=== PATIENT | female | born 1955 | race Caucasian/White ===

== ENCOUNTER → 2017-09-02 | Outpatient (CLI) | payer OTHER ==
--- NOTE | 2017-09-02 15:26 | REPMRS ---
Patient History The patient states she had a clinical breast exam in 09/17 Patient is postmenopausal. No known family history of cancer. Digital Woman Screen Mammo: September 02, 2017 - Exam #: [id number] Bilateral CC and MLO view(s) were taken. Technologist: Eleonora Alvarado, Technologist Prior study comparison: July 25, 2016, digital woman screen mammo performed at [facility]. July 28, 2015, digital woman screen mammo performed at [facility]. July 26, 2014, digital woman screen mammo performed at [facility]. FINDINGS: There are scattered fibroglandular densities. There has been no change in the appearance of the mammogram from the prior studies. There is a mild amount of scattered fibroglandular density which is fairly symmetric. There is no interval development of dominant mass, architectural distortion, or clustered microcalcification suggestive of malignancy. ASSESSMENT: BI-RADS/ACR category 1 mammogram. Negative. Recommendation Routine screening mammogram in 1 year (for women over age 40). This mammogram was interpreted with the aid of an FDA-approved computer-aided dectection system. Electronically Signed By: Jamal Ho MD 09/02/17 [id number]
== END ==
LOC: M WHC 13:51
PROVIDERS: ATTEND Nurse Practitioner Family
DX: Z12.31 Encounter for screening mammogram for malignant neoplasm of breast (principal)

== ENCOUNTER → 2018-10-30 | Outpatient (CLI) | payer OTHER | LOC: M WHC 13:49 | DX: Z12.31 Encounter for screening mammogram for malignant neoplasm of breast (principal); R92.1 Mammographic calcification found on diagnostic imaging of breast | CPT/HCPCS: 77067 ==

== ENCOUNTER → 2018-10-30 | Outpatient (REF) | payer OTHER ==
[2018-11-04 14:13] LABS: HPV LOW VOL RFLX Negative (Negative)
== END ==
LOC: M SFHCWAGY 14:17
DX: Z12.4 Encounter for screening for malignant neoplasm of cervix (principal)
CPT/HCPCS: G0123

== ENCOUNTER 2019-04-24 07:37 | Day surgery (SDC) | payer OTHER ==
[~2019-04-24] VITALS: Ht 157.5 cm; Wt 79.8 kg
[~2019-04-24 07:37] MED LIST: PRIL20TA2 PO; VITA500C19 PO; vitamin d PO
[2019-04-24] MEDS ORDERED: NS 1,000 ML IV ONE (08:30)
[2019-04-24] MEDS ORDERED: LIDOCAINE 2% INJ 100 MG/5 ML SDV (FOR ANES.) As Ordered ONE (09:03)
[2019-04-24] MEDS ORDERED: PROPOFOL 500 MG/50 ML VIAL As Ordered ONE (09:03)
--- NOTE | 2019-04-24 09:30 | ROOR ---
Patient Name: Roxana Ruelas Procedure Date: 04/24/2019 8:59 AM Date of : 1955 Age: 63 Room: [id number] Gender: Female Note Status: Finalized Procedure: Colonoscopy Indications: Screening in patient at increased risk: Colorectal cancer in mother before age 60, Screening in patient at increased risk: Colorectal cancer in brother before age 60, Screening in patient at increased risk: Colorectal cancer in sister before age 60 Providers: Marko SIBLEY MD Referring MD: 1. No Referring Physician 1. No Referring Physician, Admin. Requesting Provider: Medicines: Monitored Anesthesia Care Complications: No immediate complications. Procedure: Pre-Anesthesia Assessment: - The heart rate, respiratory rate, oxygen saturations, blood pressure, adequacy of pulmonary ventilation, and response to care were monitored throughout the procedure. The Colonoscope was introduced through the anus and advanced to the terminal ileum, with identification of the appendiceal orifice and IC valve. The colonoscopy was performed without difficulty. The patient tolerated the procedure well. The quality of the bowel preparation was good. Findings: The digital rectal exam findings include palpable rectal mass. An ulcerated partially obstructing large mass was found in the proximal rectum. The mass was circumferential. The mass measured five cm in length. This was biopsied with a cold forceps for histology. Mild sigmoid diverticulosis and small internal hemorrhoids. The exam was otherwise without abnormality on direct and retroflexion views. (Exam: Complete, Prep: Good or Excellent.) Impression: - Palpable rectal mass found on digital rectal exam. - Likely malignant partially obstructing tumor in the upper rectum/rectosigmoid (at 8 cm from anal verge). Biopsied. - Mild sigmoid diverticulosis and moderate internal hemorrhoids. - The examination was otherwise normal to cecum/terminal ileum on direct and retroflexion views. Recommendation: - Refer to a surgeon at the next available appointment. - Await pathology results. Marko Sibley MD Marko SIBLEY MD 04/24/2019 9:30:23 AM Electronically signed by Marko SIBLEY MD Number of Addenda: 0 Note Initiated On: 04/24/2019 8:59 AM Estimated Blood Loss: Estimated blood loss: none.
[2019-04-24 09:45] VITALS: BP 129/65
== END 2019-04-24 10:12 | disposition home or self-care (01) ==
LOC: M OPP 07:37
PROVIDERS: ATTEND Internal Medicine Gastroenterology
DX: C18.7 Malignant neoplasm of sigmoid colon (principal); K57.30 Diverticulosis of large intestine without perforation or abscess without bleeding; K64.8 Other hemorrhoids; K56.690 Other partial intestinal obstruction; Z12.11 Encounter for screening for malignant neoplasm of colon; Z80.0 Family history of malignant neoplasm of digestive organs

== ENCOUNTER → 2019-04-30 | Outpatient (CLI) | payer OTHER ==
[2019-04-30 16:43] LABS: BASO % 0.5 % (0.0-1.0); EOS % 0.5 % (0.0-3.0); HEMATOCRIT 46.6 % (36.0-47.0); HEMOGLOBIN 14.8 g/dl (12.0-15.5); LYMPH # 1.6 10^3/uL (1.5-4.5); LYMPH % 19.7 % (24.0-44.0); MEAN CORPUSCULAR HEMOGLOBIN 29.1 pg (27.0-33.0); MEAN CORPUSCULAR HGB CONC 31.8 g/dl (32.0-36.5); MEAN CORPUSCULAR VOLUME 91.6 fl (80.0-96.0); MONO # 0.6 10^3/uL (0.0-0.8); MONO % 6.9 % (0.0-5.0); NEUTROPHILS # 5.8 10^3/uL (1.8-7.7); PLATELET COUNT, AUTOMATED 254 10^3/uL (150-450); RED BLOOD COUNT 5.09 10^6/uL (4.00-5.40); WHITE BLOOD COUNT 8.1 10^3/uL (4.0-10.0)
[2019-04-30 16:47] LABS: ALT/SGPT 22 U/L (12-78); BILIRUBIN,TOTAL 0.3 MG/DL (0.2-1.0); BLOOD UREA NITROGEN 9 MG/DL (7-18); CALCIUM LEVEL 9.7 MG/DL (8.8-10.2); CARBON DIOXIDE LEVEL 29 MEQ/L (21-32); CHLORIDE LEVEL 106 MEQ/L (98-107); CREATININE FOR GFR 0.71 MG/DL (0.55-1.30); GLOMERULAR FILTRATION RATE > 60.0 (>45); GLUCOSE, FASTING 85 MG/DL (70-100); POTASSIUM SERUM 4.2 MEQ/L (3.5-5.1); SODIUM LEVEL 142 MEQ/L (136-145); TOTAL PROTEIN 7.3 GM/DL (6.4-8.2)
== END ==
LOC: M LAB 15:13
PROVIDERS: ATTEND Surgery
DX: Z12.11 Encounter for screening for malignant neoplasm of colon (principal)

== ENCOUNTER 2019-05-07 07:30 | Inpatient (IN) | payer OTHER ==
[~2019-05-07] VITALS: Ht 157.5 cm; Wt 76.6 kg
--- NOTE | 2019-05-18 23:45 | HPE ---
DATE OF SCHEDULED ADMISSION: 05/19/2019 ADMITTING DIAGNOSIS: Rectal cancer. HISTORY OF PRESENT ILLNESS: The patient is a 63-year-old woman who had noted some spotting of blood on the toilet tissue for several months. She had undergone a colonoscopy in 2007 and then again in 2012 at [facility]. She had been noted to have some diverticulosis but no polyps were found. Because of her history of some bleeding, she underwent a colonoscopy by Dr. Sibley on April 24, 2019. He identified an ulcerated partially obstructing large mass in the proximal rectum. This was described as circumferential and measuring 5 cm in length. Biopsies were obtained, which revealed moderately differentiated adenocarcinoma. She was referred to me for consideration of resection. I saw her initially on the April 30, 2019 in the office. She had some laboratory studies obtained which included a CEA level of 1.4, which is within normal limits. She was scheduled for a CT scan of the abdomen and pelvis, which was obtained on May 14, 2019. This revealed an area of thickening in the rectal wall, which the radiologist felt extended over a distance of approximately 7 cm. There was no other bowel wall thickening seen. She did have some diverticulosis noted. She was also noted to have a large heterogeneously enhancing mass in the fundus of the uterus, which likely represented a fibroid. There was no significant or suspicious adenopathy identified and no signs of liver metastases. The patient was counseled for surgery. She is now admitted to undergo a robotically-assisted laparoscopic low anterior resection and anastomosis. ALLERGIES: The patient has no known drug allergies. CURRENT MEDICATIONS: Include Prilosec [id number] daily, vitamin D daily, some vitamin C daily. She was provided prescriptions for neomycin, Flagyl and SUPREP to perform her mechanical and antibiotic bowel preparation on May 18, 2019. PAST MEDICAL HISTORY: Significant for some gastroesophageal reflux disease. SURGICAL HISTORY: Significant for a tubal ligation, and she has undergone three prior colonoscopies in 2007, 2012, and 2018. SOCIAL HISTORY: The patient is . She drinks alcohol infrequently. She does smoke approximately one-half pack of cigarettes per day. FAMILY HISTORY: The patient's father was of unknown causes in his 60s, and her mother was in her 60s, apparently related to some sort of noncancer-related bowel problem. REVIEW OF SYSTEMS: The patient denies any chest pain or palpitations. She has had no history of myocardial infarction. She denies any history of transient ischemic attack (TIA) or stroke. She has no chronic headaches. She denies any significant weight gain or weight loss recently. She has had no fevers or chills. There is no history of cough, wheezing or sputum production. She denies dysuria or hematuria. She has no back pain or joint problems. There is no history of deep vein thrombosis (DVT) or pulmonary embolus. PHYSICAL EXAM: Reveals a pleasant woman in no acute distress. Height is 62 inches with a weight of approximately 80 kg. She is alert, oriented and cooperative. Skin: Warm and dry. Sclerae are anicteric. Neck is supple without mass or bruit. Heart: Exam reveals a regular rate and rhythm. Lungs are clear to auscultation bilaterally. The abdomen is flat. She has active bowel sounds. The abdomen is soft throughout without palpable mass. There is no inguinal adenopathy. Examination of the perineum reveals no evidence of infection or fistula. A digital rectal examination is performed. This showed normal sphincter tone. There were no palpable masses of the rectal wall. At the superior extent of the reach of my index finger, which is approximately 7-8 cm, I can feel a firm mass which appears to be protruding into the lumen of the rectum from above, so that as I run my finger around the rectal wall, the tumor is clearly above the tip of my finger on all sides. I do not feel any definite perirectal lymph nodes. Her CT scan results and laboratory results are as noted in the history of present illness. IMPRESSION: Mid to upper rectal cancer without evidence of metastatic disease at this time. PLAN: The patient will be admitted on May 19, 2019 to undergo a robotically-assisted laparoscopic low anterior resection. She was counseled for the surgery to include indications for the procedure and risks. Risks include but are not limited to bleeding, infection, scarring, adverse drug reaction, need for further surgery, injury to internal organ, anastomotic leak, and hernia. She had an opportunity to ask questions. She understands that she will have a relatively short rectal stump remaining and that she is likely to have more frequent bowel movements and perhaps somewhat less control. She wishes to proceed with the surgery as I have outlined it.
[2019-05-19] MEDS ORDERED: LR 1,000 ML IV ONE (06:00)
[2019-05-19] MEDS ORDERED: ALVIMOPAN 12 MG CAPSULE (ENTEREG) PO ONE (06:00)
[2019-05-19] MEDS ORDERED: cefoTEtan DISODIUM 2 GM in D5W MINI-BAG PLUS 50 ML IV ONE (06:00)
[2019-05-19] MEDS ORDERED: FLAG500T PO (13:40)
[2019-05-19] MEDS ORDERED: NEOM500T PO (13:40)
[2019-05-19] MEDS ORDERED: LIDOCAINE 2% INJ 100 MG/5 ML SDV (FOR ANES.) As Ordered ONE ×2 (14:35→15:32)
[2019-05-19] MEDS ORDERED: ROCURONIUM BROMIDE 50 MG/5 ML VIAL As Ordered ONE ×2 (14:35→16:45)
[2019-05-19] MEDS ORDERED: PROPOFOL 200 MG/20 ML VIAL As Ordered ONE (14:35)
[2019-05-19] MEDS ORDERED: dexameTHASONE 4 MG/ML 1ML VIAL (J1100) As Ordered ONE (14:35)
[2019-05-19] MEDS ORDERED: ONDANSETRON 4MG/2ML VIAL (J2405) As Ordered ONE ×2 (14:36→21:44)
[2019-05-19] MEDS ORDERED: fentaNYL 250 MCG/5 ML INJECTION (J3010) As Ordered ONE (14:49)
[2019-05-19] MEDS ORDERED: MIDAZOLAM INJ 2 MG/2 ML VIAL (J2250) As Ordered ONE (14:50)
[2019-05-19] MEDS ORDERED: BUPIVACAINE HCL 0.25% 30 ML VIAL As Ordered ONE (15:23)
[2019-05-19] MEDS ORDERED: PROPOFOL 500 MG/50 ML VIAL As Ordered ONE ×2 (15:31→16:39)
[2019-05-19] MEDS ORDERED: KETAMINE HCL 200 MG/20 ML VIAL As Ordered ONE (15:32)
[2019-05-19] MEDS ORDERED: SUGAMMADEX SODIUM 500 MG/5 ML VIAL (BRIDION) As Ordered ONE (18:23)
[2019-05-19] MEDS ORDERED: HYDROmorphone HCL 2 MG/ML 1ML VIAL (J1170) As Ordered ONE (19:46)
[2019-05-19] MEDS ORDERED: KETOROLAC 60 MG/2 ML VIAL (J1885) As Ordered ONE (21:44)
[2019-05-19] MEDS ORDERED: DESFLURANE 240 ML INHALANT As Ordered ONE (21:52)
[2019-05-19] MEDS ORDERED: KETOROLAC 30 MG/ML VIAL (J1885) IV PRN (22:30)
[2019-05-19] MEDS ORDERED: NORCO, ANEXSIA 5/325MG TABLET (HYDROcodone/ACETAMINOPHEN) PO PRN (22:30)
[2019-05-19] MEDS ORDERED: METOCLOPRAMIDE INJ 10MG/2ML VIAL (J2765) IV PRN (22:30)
[2019-05-19] MEDS ORDERED: ONDANSETRON 4MG/2ML VIAL (J2405) IV PRN (22:30)
[2019-05-19] MEDS ORDERED: MORPHINE 4 MG/ML 1ML VIAL/SYRINGE (J2270) IV PRN ×2 (22:30)
[2019-05-19] MEDS ORDERED: ACETAMINOPHEN TAB 650MG DOSE (2X325MG) PO PRN (22:30)
[2019-05-19] MEDS ORDERED: PROMETHAZINE INJ 25 MG/ML VIAL (J2550) IV PRN (22:45)
[2019-05-19] MEDS ORDERED: fentaNYL 100 MCG/2 ML INJECTION (J3010) IV PRN (22:45)
[2019-05-19] MEDS ORDERED: oxyCODONE 5MG TAB PO PRN (22:45)
[2019-05-19] MEDS ORDERED: LR 1,000 ML IV SCH (22:45)
[2019-05-19 23:45] VITALS: BP 154/72
[2019-05-20] VITALS (9 sets, daily range): BP systolic 122–146; BP diastolic 58–71
[2019-05-20] MEDS: LR 1,000 ML IV SCH ×3 (00:38→10:46)
[2019-05-20] MEDS: ALVIMOPAN 12 MG CAPSULE (ENTEREG) PO SCH ×3 (00:38→20:36)
[2019-05-20] MEDS ORDERED: cefoTEtan DISODIUM 2 GM in D5W MINI-BAG PLUS 50 ML IV ONE (04:00)
[2019-05-20 06:04] LABS: BASO % 0.2 % (0.0-1.0); HEMATOCRIT 42.8 % (36.0-47.0); HEMOGLOBIN 13.8 g/dl (12.0-15.5); LYMPH # 1.3 10^3/uL (1.5-4.5); LYMPH % 11.4 % (24.0-44.0); MEAN CORPUSCULAR HEMOGLOBIN 30.1 pg (27.0-33.0); MEAN CORPUSCULAR HGB CONC 32.2 g/dl (32.0-36.5); MEAN CORPUSCULAR VOLUME 93.4 fl (80.0-96.0); MONO # 0.9 10^3/uL (0.0-0.8); MONO % 7.3 % (0.0-5.0); NEUTROPHILS # 9.4 10^3/uL (1.8-7.7); NEUTROPHILS % 80.8 % (36.0-66.0); PLATELET COUNT, AUTOMATED 195 10^3/uL (150-450); RED BLOOD COUNT 4.58 10^6/uL (4.00-5.40); WHITE BLOOD COUNT 11.6 10^3/uL (4.0-10.0)
[2019-05-20] MEDS: ENOXAPARIN 40 MG/0.4 ML SYRINGE (J1650) SC SCH (06:21)
[2019-05-20 06:37] LABS: ALBUMIN 2.6 GM/DL (3.2-5.2); BILIRUBIN,TOTAL 0.3 MG/DL (0.2-1.0); CALCIUM LEVEL 8.2 MG/DL (8.8-10.2); CREATININE FOR GFR 1.23 MG/DL (0.55-1.30); GLOMERULAR FILTRATION RATE 47.1 (>45); POTASSIUM SERUM 3.9 MEQ/L (3.5-5.1); TOTAL PROTEIN 5.7 GM/DL (6.4-8.2)
[2019-05-20] MEDS: OMEPRAZOLE 20 MG CAP PO SCH (08:36)
--- NOTE | 2019-05-20 18:03 | IPN ---
DATE: 05/20/2019 HISTORY: Patient is now postoperative day #1 from a robotic-assisted laparoscopic low anterior resection for a mid rectal cancer. Her surgery was completed at approximately 10:00 p.m. on 05/19/2019. She appears awake and alert today. Vital signs show that she has been afebrile since surgery. Her pulse is in the 70s and 80s and her blood pressure is excellent. Saturations are excellent on 3 liters of nasal cannula oxygen. Intake and output show that yesterday she had 3500 recorded in, with 275 out. She had 350 mL of urine output recorded this morning. She has been taking clear liquids this morning and doing well. PHYSICAL EXAMINATION: Patient is alert and oriented and looks quite comfortable, sitting up in the bed. Skin is warm and dry. Heart exam shows a regular rate and rhythm. The lungs are clear. The abdomen shows active bowel sounds. Her dressings are dry. The abdomen is soft without any undue tenderness. Laboratory studies show a white count of 12, with a differential showing 81% neutrophils, 11% lymphocytes and 7% monocytes. Hemoglobin is 14 with a hematocrit of 42 and the platelet count is 195,000. Chemistry profile shows a sodium of 142, potassium 3.9, chloride 110, CO2 of 27, BUN of 9, creatinine 1.2 and a glucose of 107. Liver function tests are not significantly abnormal. IMPRESSION: Patient is doing excellently, effectively 12 hours postoperatively from her low anterior resection. She is tolerating liquids well and her urine output is starting to cone picker as expected. PLAN: Patient's Coffey catheter will be continued for the next three days before considering removal. Her diet will be advanced to regular tomorrow if she tolerates the liquids today. I advised her that she may have problems with bowel control and frequent bowel movements, particularly at first after surgery and I have suggested that she may wish to wear an adult diaper in case of accidents. We will await her pathology report, which may be ready as soon as Saturday. I will be going out of town for the next few days for a conference and my partners will be covering. We will recheck her labs on 05/22/2019.
[2019-05-21 06:00] VITALS: BP 130/78
[2019-05-21] MEDS: ENOXAPARIN 40 MG/0.4 ML SYRINGE (J1650) SC SCH (08:17)
[2019-05-21] MEDS: OMEPRAZOLE 20 MG CAP PO SCH (08:17)
[2019-05-21] MEDS: ALVIMOPAN 12 MG CAPSULE (ENTEREG) PO SCH ×2 (08:17→20:49)
--- NOTE | 2019-05-21 13:57 | RO ---
DATE OF PROCEDURE: 05/19/2019 PREOPERATIVE DIAGNOSIS: Mid rectal cancer. POSTOPERATIVE DIAGNOSIS: Mid rectal cancer. PROCEDURE PERFORMED: Robotic-assisted laparoscopic low anterior resection with colorectal anastomosis. SURGEON: Hai Ogden MD ART OBJECTS REPAIRER: Dr. Ramy Bedolla. Dr. Bedolla was instrumental in assisting with the colorectal anastomosis including the preparation of the proximal end of the colon with exposure and also in performing the actual anastomosis and assessing this endoscopically at completion. ANESTHESIA: General. INDICATIONS FOR PROCEDURE: The patient is a 63-year-old woman who underwent evaluation with a colonoscopy because of some rectal bleeding noted over a several month period. She was found to have a large rectal mass at approximately 8 cm above the anal verge. She is now for a laparoscopic low anterior resection. OPERATIVE PROCEDURE: The patient was brought to the operating room and placed on the table in a supine position. She was placed under general endotracheal anesthesia. The legs were placed into padded leg holders in a low lithotomy position. A Coffey catheter was inserted. I performed a digital rectal examination which confirmed the location of her tumor just at the very tip of the examining finger and I also performed a gentle anal dilatation at this time. The patient's abdomen was prepped and draped in a sterile fashion. The initial entry into the abdomen was with a small incision in the left upper quadrant. 0.25% Marcaine was infiltrated is the bed in into the incisions as needed. The small incision was made a left upper quadrant and a Veress needle inserted. After a positive hanging drop test the abdomen was insufflated with carbon dioxide gas. The Veress needle was removed and an 8 mm robotic Visiport was placed without difficulty. Initial examination with the laparoscope showed no significant adhesions. There were a few adhesions or attachments of the right colon to the abdominal wall far laterally, but nothing that would interfere with the procedure. Her uterus was noted to be large as had been seen on her CT scan. A second port was placed just above and slightly to the left of the umbilicus. A 15 mm port was placed in the right lower quadrant to be used as the stapling port and a fourth 8 mm port was placed between the umbilicus and this right lower quadrant port. A final 5 mm standard laparoscopic port was placed in the right upper quadrant to serve as an assistant administrator port. The patient console was moved into position and the camera port was docked and the camera inserted and the pelvis targeted. A large grasper was placed in the (cut off). A cauterizing grasper was placed in the periumbilical site and the cauterizing scissors were placed in the right lower quadrant. The patient to was tilted to a roughly 15 degree Trendelenburg position prior to docking the robot. I then moved to the control console where I remained until the robot was undocked and we proceeded with the removal of the specimen and the anastomosis. Initially, the left colon was grasped and elevated and freed along its lateral attachments. This extended from the proximal descending colon all the way down across the sigmoid. The colon was mobilized medially extensively. There was minimal blood loss. The left ureter was clearly identified and preserved. The uterus, which was quite large, perhaps 12 cm in diameter, was elevated out of the pelvis with some difficulty. Inspection showed that the sigmoid colon all appeared normal and soft down into the rectum. The area of the tumor was largely obscured by perirectal fat. The patient was noted to have small atrophic ovaries bilaterally. There was a possible small subperitoneal leiomyoma inferiorly and posteriorly on the right. Otherwise, the uterus was just quite enlarged. The appendix was noted in the course of the procedure and appeared normal. Once the left colon had been mobilized, the patient was tilted to a more significant Trendelenburg position of approximately 30 degrees and was also rotated to the right. The sigmoid colon was elevated and the mesentery was divided beginning medially and extending to the chosen division point. The mesentery was divided using initially the cauterizing scissors, but the vessel sealer was used to divide the vessels at the base of the mesentery. The colon itself was divided with a green load of the robotic stapler. The end of the sigmoid colon was then elevated and dissection proceeded inferiorly developing the posterior plane to perform a total mesorectal excision. The lateral peritoneum on each side was scored with the cauterizing scissors and the dissection then was carried out, either with the vessel sealer or the cauterizing scissors. Posteriorly the plane developed readily using the cauterizing scissors and gentle blunt dissection. Dissection proceeded inferiorly along the hollow of the sacrum. The lateral dissection was carried out in stages as the procedure moved more inferiorly. The uterus was elevated by grasping the lateral aspects with the fourth robotic arm and also on the opposite side with a grasper through the assistant administrator port to elevate the uterus and keep this out of the pelvis to allow greater ease of dissection. Dissection continued deep down into the pelvis, approximately to the pelvic floor. Approximately 2 cm above the pelvic floor was selected as the site for division of the rectum. The fibrofatty tissue was dissected in this area to expose the rectal wall. The rectum was then divided with three loads of the robotic endoscopic stapler with blue loads sequentially placed from the right to the left. A nice closure was achieved. The specimen was then pulled up out of the pelvis and the pelvis was copiously irrigated and inspected and there was no bleeding noted. The specimen was set off to the side higher in the abdomen and the left colon was then brought down into the pelvis. Some additional mobilization was required to free the end of the colon enough to reach easily into the pelvis. Once this had been accomplished the robot was undocked and removed. A small transverse incision was created beginning in the right lower quadrant at the larger port site. A small Juan Antonio retractor was placed. The specimen was grasped and removed and set aside. By palpation, I would estimate that there was an approximately 2-3 cm clear distal margin. There was no definite evidence of invasion of the tumor into surrounding tissues. There were no large nodes palpable and the mesorectal excision appeared excellent. This was placed in formalin and sent for permanent pathology. The proximal end of the sigmoid was brought through the right lower quadrant site. The end of the bowel was tailored slightly and the staple line was removed. The lumen was barely large enough to admit a 25 mm EEA stapler anvil. A pursestring of #2-0 Prolene was placed and tied around the anvil. The bowel was then reduced into the abdomen after irrigation. The abdominal wall muscles were closed in layers with #1 Vicryl sutures. The wound was packed with a moist (cut off). The abdomen was then reinflated. I would note that Dr. Bedolla had joined me in the procedure as the assistant administrator to deliver the specimen and prepare the for the anastomosis. Dr. Bedolla then went down to the perineum. He gently dilated the rectum and identified the short rectal stump. We then used a liver retractor to elevate the uterus out of the pelvis more effectively. The end of the colon was brought down into the pelvis and appeared to have adequate length. The 25 mm EEA stapler was inserted into the rectal stump and the post was advanced and the anvil was attached. Dr. Bedolla closed the stapler and fired it and removed it. The tissue doughnuts were inspected and were intact and of good quality. There appeared to be some slight tension on the (cut off). I incised the peritoneum in several points on the bowel proximal to this to allow the tissues to stretch additionally and this appeared to allow less tension but without impairing the blood supply. The pelvis was irrigated and then filled with saline. Dr. Bedolla inserted the flexible endoscope into the rectum and the anastomosis was closely inspected. There did not appear to be any defects and there was no bleeding identified. With insufflation of air, there was no apparent air leak at the anastomosis. Dr. Bedolla was then released from the procedure. The patient was returned to a flat position. The abdomen was deflated and all of the remaining trocars were removed. The incisions were all closed with some buried #4-0 Vicryl and Steri-Strips. Light dressings were applied. The patient's Coffey catheter was kept in place but a nasogastric tube placed by anesthesia was removed at the conclusion of the procedure. The patient was awakened in the operating room, extubated and moved to the recovery room in stable condition.
[2019-05-21 14:00] VITALS: BP 144/67
[2019-05-21 18:00] VITALS: BP 138/65
--- NOTE | 2019-05-21 21:24 | IPN ---
DATE: 05/21/2019 The patient is a 63-year-old female who is status post low anterior resection by Dr. Ogden and has been doing very well, has been afebrile. She has been tolerating a regular diet today and has had some bowel movements. Unfortunately, she has had some incontinence of her bowel movements, but otherwise seems to be ambulating well and no other complaints. From a GI standpoint, she is not complaining of any nausea, no vomiting. She is having minimal abdominal pain and overall has been afebrile. PHYSICAL EXAMINATION: Abdomen soft, nontender, nondistended. Her dressings are dry and intact and no drainage is appreciated. IMPRESSION AND PLAN The patient is status post very low anterior resection and overall seems to be doing well from a surgical standpoint. Unfortunately, she will probably have some significant urgency given the very low anastomosis. I do feel that at this point it is reasonable to continue with a regular diet. We will make sure she has a low-residue diet and more importantly encourage her to increase her activity and will see how she does over the next 12-24 hours. The second issue is her Coffey catheters in place as desired but her primary surgeon for 3 days and tomorrow will DC the Coffey in the morning. If she tolerates this out and she is ambulating well and eating well then will discharge her home with followup next week.
[2019-05-21 22:00] VITALS: BP 136/68
[2019-05-22 06:00] VITALS: BP 140/72
[2019-05-22 08:04] LABS: BASO % 0.5 % (0.0-1.0); EOS # 0.1 10^3/uL (0.0-0.50); HEMATOCRIT 42.1 % (36.0-47.0); HEMOGLOBIN 13.9 g/dl (12.0-15.5); LYMPH # 1.1 10^3/uL (1.5-4.5); MEAN CORPUSCULAR HEMOGLOBIN 29.6 pg (27.0-33.0); MEAN CORPUSCULAR VOLUME 89.8 fl (80.0-96.0); MONO # 0.6 10^3/uL (0.0-0.8); MONO % 6.8 % (0.0-5.0); NEUTROPHILS % 79.2 % (36.0-66.0); PLATELET COUNT, AUTOMATED 211 10^3/uL (150-450); RED BLOOD COUNT 4.69 10^6/uL (4.00-5.40); WHITE BLOOD COUNT 8.8 10^3/uL (4.0-10.0)
[2019-05-22 08:32] LABS: BLOOD UREA NITROGEN 5 MG/DL (7-18); CALCIUM LEVEL 8.7 MG/DL (8.8-10.2); CARBON DIOXIDE LEVEL 26 MEQ/L (21-32); CHLORIDE LEVEL 109 MEQ/L (98-107); CREATININE FOR GFR 0.63 MG/DL (0.55-1.30); GLOMERULAR FILTRATION RATE > 60.0 (>45); GLUCOSE, FASTING 84 MG/DL (70-100); POTASSIUM SERUM 3.6 MEQ/L (3.5-5.1); SODIUM LEVEL 142 MEQ/L (136-145)
[2019-05-22] MEDS ORDERED: ACET1TAB55 PO (08:48)
[2019-05-22] MEDS: ALVIMOPAN 12 MG CAPSULE (ENTEREG) PO SCH (09:09)
[2019-05-22] MEDS: OMEPRAZOLE 20 MG CAP PO SCH (09:09)
[2019-05-22] MEDS: ENOXAPARIN 40 MG/0.4 ML SYRINGE (J1650) SC SCH (09:09)
[2019-05-22 10:00] VITALS: BP 145/82
== END 2019-05-22 14:11 | disposition home or self-care (01) | DRG 221 ==
LOC: M OR 05-19 12:48 → M MSPAV 05-19 23:40
PROVIDERS: ADMIT Surgery; ATTEND Surgery
PROC: 8E0W4CZ Robotic Assisted Procedure of Trunk Region, Percutaneous Endoscopic Approach (ICD-10-PCS; 2019-05-19)
PROC: 0DBP4ZZ Excision of Rectum, Percutaneous Endoscopic Approach (ICD-10-PCS; principal; 2019-05-19 14:15)
DX: C20 Malignant neoplasm of rectum (principal); F17.200 Nicotine dependence, unspecified, uncomplicated; K57.30 Diverticulosis of large intestine without perforation or abscess without bleeding; K21.9 Gastro-esophageal reflux disease without esophagitis

== ENCOUNTER → 2019-05-12 | Outpatient (REF) | payer OTHER ==
[2019-05-12 10:52] LABS: CHOLESTEROL RISK RATIO 2.219 (<5)
== END ==
LOC: M SFHCPLAZ 08:18
PROVIDERS: ATTEND Family Medicine
DX: Z13.220 Encounter for screening for lipoid disorders (principal)

== ENCOUNTER → 2019-05-14 | Outpatient (CLI) | payer OTHER ==
[~2019-05-14] MED LIST changes: +FLAG500T PO; +GASTROGRAFIN SOLUTION 30ML (Q9963) As Ordered ONE; +ISOVUE-370 76% 100ML VIAL (Q9967) As Ordered ONE; +NEOM500T PO
--- NOTE | 2019-05-14 13:53 | REP ---
CT ABDOMEN AND PELVIS WITH ORAL AND IV CONTRAST: TECHNIQUE: Axial contrast enhanced images from the lung bases to the pubic symphysis using 100 mL Isovue 370 intravenous contrast material with multiplanar reformations. Visualized lung bases are clear. The liver, spleen, adrenals, pancreas and kidneys demonstrate no mass. There is no hydronephrosis bilaterally. There is no abdominal aortic aneurysm with mild scattered atherosclerotic calcification of the abdominal aorta. I see no significant adenopathy. There is no free air or free fluid. There is thickening of the wall of the rectum. This involves approximately a 7 cm length segment of the rectum. No other bowel wall thickening is seen. In the left side of the uterus, there is a large heterogeneously enhancing mass, which probably represents a large fibroid. This measures 5.7 cm in diameter. I see no other significant findings. IMPRESSION: There is diffuse thickening of a segment of the rectum, approximately 7 cm in length. No significant adenopathy. Mass in the left side of the uterus probably represents a fibroid measuring about 5.7 cm in diameter. Underlying endometrial abnormality is not excluded. Electronically Signed by Rachid Stubbs MD 05/14/2019 04:43 P
== END ==
LOC: M RAD 11:07
PROVIDERS: ATTEND Surgery
DX: Z80.0 Family history of malignant neoplasm of digestive organs (principal)

== ENCOUNTER → 2019-06-15 | Outpatient (CLI) | payer OTHER ==
[~2019-06-15] MED LIST changes: +ACET1TAB55 PO; +CHOL100029 PO; -GASTROGRAFIN SOLUTION 30ML (Q9963) As Ordered ONE; -ISOVUE-370 76% 100ML VIAL (Q9967) As Ordered ONE
--- NOTE | 2019-06-16 07:20 | ECHO ---
DATE OF PROCEDURE: 06/15/2019 REFERRING PHYSICIAN: Dr. Marychuy Thakkar REASON FOR ECHOCARDIOGRAM: Abnormal EKG. 2D MEASUREMENT: IVS - 0.9 cm LV - 4.2 cm LVPW - 1.0 cm LA - 3.5 cm Aorta - 2.1 cm IVC - 1.8 cm DOPPLER MEASUREMENT: Peak velocity across the aortic valve 1.5 m/s Peak velocity across the LVOT - 0.9 m/s Peak gradient across the aortic valve 9 mmHg. Mitral E - 0.7, mitral A - 0.4 with a ratio of 1.6. Maximum tricuspid valve velocity 2.7 m/s. 2D COMMENTS: 1. Normal left ventricular size, wall thickness, and normal global left ventricular systolic function. The estimated ventricular systolic inversion is 60-65%. 2. Normal left atrium. Normal right atrium and right ventricle. 3. The atrial septum appeared to be normal without evidence of defect or shunt. 4. Normal aortic root. 5. Trace pericardial effusion noted at the base of the left ventricle, no evidence of cardiac component. 6. Mildly calcified aortic valve with normal leaflet excursion. Mildly calcified mitral annulus with normal anterior mitral valve leaflet motion. Normal tricuspid valve and pulmonic valve. The proximal pulmonary artery branches also appear to be normal. 7. The inferior vena cava was normal in size, central venous pressure is most likely normal. DOPPLER: It detects mild aortic regurgitation, trace mitral regurgitation, mild tricuspid regurgitation, and trace pulmonic regurgitation. The calculated pulmonary artery systolic pressure varies between 30-40 mmHg. Assessment of the left ventricular diastolic function appeared to be normal. IMPRESSION: 1. Normal global left ventricular systolic and diastolic function. 2. Aortic valve sclerosis with mild aortic regurgitation and trivial aortic stenosis. 3. Mitral annulus calcification with trace mitral regurgitation. 4. Mild tricuspid regurgitation with mild pulmonary hypertension. 5. Trace pulmonic regurgitation. 6. Trace non-significant pericardial effusion noted at the base of the left ventricle. [facility]
== END ==
LOC: M CARPUL 08:14
PROVIDERS: ATTEND Family Medicine
DX: R94.31 Abnormal electrocardiogram [ECG] [EKG] (principal)

== ENCOUNTER → 2019-07-03 | Outpatient (CLI) | payer OTHER ==
[~2019-07-03] MED LIST changes: -CHOL100029 PO; +VITAD1000T PO
--- NOTE | 2019-07-03 09:48 | REP ---
Clinical: Lung screening. History smoking. Comparison: None Technique: Axial low-dose noncontrast images from the thoracic inlet to the upper abdomen using lung screening technique. Findings: The lung bravo are well-aerated. No consolidation, significant nodule or mass lesion is appreciated. No pleural effusion/reaction or pneumothorax. Tracheobronchial tree is patent. Mediastinum demonstrates mild atherosclerotic changes of the coronary arteries without cardiomegaly. Impression: Lung-RADS category I. No nodule or suspicious abnormality. Management recommendations include annual low-dose CT reevaluation. Electronically Signed by Yogi Bills MD 07/03/2019 09:39 A
== END ==
LOC: M RAD 09:21
PROVIDERS: ATTEND Internal Medicine Medical Oncology
DX: Z87.891 Personal history of nicotine dependence (principal); C18.9 Malignant neoplasm of colon, unspecified

== ENCOUNTER → 2019-09-03 | Outpatient (CLI) | payer OTHER ==
[~2019-09-03] MED LIST changes: +CHOL100029 PO; -VITAD1000T PO
--- NOTE | 2019-09-03 16:31 | REP ---
PELVIC ULTRASOUND: Real-time sonographic evaluation of the pelvis performed. Transabdominal and endovaginal technique is utilized. The bladder measures 3.1 x 9.1 x 3.6 cm. Uterus measures 8.9 x 5.0 x 5.1 cm. Endometrial thickness is 6 mm which is mildly thickened for this post menopausal patient. Multiple fibroids are seen in the uterus. A left lower uterine segment fibroid measures 1.7 x 1.1 x 1.7 cm. In the body of the uterus, a dominant fibroid measures 5.6 x 5.0 x 5.0 cm. On the right anteriorly, there are two adjacent fibroids measuring 1.3 x 0.8 x 1.4 cm and 1.4 x 1.0 x 1.4 cm. Ovaries could not be visualized. There is no definite adnexal mass or free fluid. IMPRESSION: Fibroid uterus as above. Mild endometrial thickening at 6 mm. I cannot exclude underlying endometrial hyperplasia or neoplasm.
== END ==
LOC: M WHC 13:48
PROVIDERS: ATTEND Family Medicine
DX: R10.32 Left lower quadrant pain (principal); D25.9 Leiomyoma of uterus, unspecified; R93.89 Abnormal findings on diagnostic imaging of other specified body structures

== ENCOUNTER → 2019-09-09 | Outpatient (REF) | payer OTHER | LOC: M SFHCWAGY 11:23 | PROVIDERS: ATTEND Nurse Practitioner Family | DX: N85.8 Other specified noninflammatory disorders of uterus (principal) ==

== ENCOUNTER → 2019-11-03 | Outpatient (CLI) | payer OTHER ==
--- NOTE | 2019-11-03 15:09 | REPMRS ---
Patient History The patient states she has not had a clinical breast exam in over a year. Patient is postmenopausal and has history of colorectal cancer at age 63. No known family history of cancer. No Hormone Replacement Therapy 3D TOMOSYNTHESIS WAS PERFORMED. The [facility] lifetime risk for breast cancer is 6.1%. Digital Woman Screen Mammo: November 03, 2019 - Exam #: [id number] Bilateral CC and MLO view(s) were taken. Technologist: Simran Chiang, Technologist Prior study comparison: October 30, 2018, bilateral digital woman screen mammo performed at [facility]. September 02, 2017, digital woman screen mammo performed at [facility]. FINDINGS: There are scattered fibroglandular densities. There has been no change in the appearance of the mammogram from the prior studies. There is a mild amount of residual fibroglandular tissue which is fairly symmetric. There is no interval development of dominant mass, architectural distortion, or clustered microcalcification suggestive of malignancy. Assessment: BI-RADS/ACR category 1 mammogram. Negative Mammogram. Recommendation Routine screening mammogram in 1 year (for women over age 40). This mammogram was interpreted with the aid of an FDA-approved computer-aided dectection system. Electronically Signed By: Rachid Stubbs MD 11/03/19 [id number]
== END ==
LOC: M WHC 13:42
PROVIDERS: ATTEND Nurse Practitioner Women's Health
DX: Z12.31 Encounter for screening mammogram for malignant neoplasm of breast (principal); Z78.0 Asymptomatic menopausal state; Z85.038 Personal history of other malignant neoplasm of large intestine

== ENCOUNTER → 2020-05-02 | Outpatient (CLI) | payer OTHER | LOC: M LABSMTC 10:53 | PROVIDERS: ATTEND Anesthesiology | DX: Z01.818 Encounter for other preprocedural examination (principal); Z11.59 Encounter for screening for other viral diseases | CPT/HCPCS: C9803; U0003 ==

== ENCOUNTER 2020-05-05 12:11 | Day surgery (SDC) | payer OTHER ==
[~2020-05-05] VITALS: Ht 157.5 cm; Wt 79.4 kg
[~2020-05-05 12:11] MED LIST changes: +LIDOCAINE 2% 100MG/5ML SDV (FOR ANES.) As Ordered ONE; +NS 1,000 ML IV ONE; +propofoL 200 MG/20 ML VIAL As Ordered ONE
[2020-05-05] MEDS ORDERED: propofoL 200 MG/20 ML VIAL As Ordered ONE (13:14)
--- NOTE | 2020-05-05 14:01 | ROOR ---
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 Providers: Hai Ogden MD Referring MD: Marychuy Thakkar MD Requesting Provider: Medicines: Monitored Anesthesia Care Complications: No immediate complications. Procedure: Pre-Anesthesia Assessment: - Prior to the procedure, a History and Physical was performed, and patient medications and allergies were reviewed. The patient is competent. The risks and benefits of the procedure and the sedation options and risks were discussed with the patient. All questions were answered and informed consent was obtained. Patient identification and proposed procedure were verified by the physician, the nurse and the mold maker plaster in the procedure room. Mental Status Examination: alert and oriented. Airway Examination: normal oropharyngeal airway and neck mobility. Prophylactic Antibiotics: The patient does not require prophylactic antibiotics. Prior Anticoagulants: The patient has taken no previous anticoagulant or antiplatelet agents. ASA Grade Assessment: II - A patient with mild systemic disease. After reviewing the risks and benefits, the patient was deemed in satisfactory condition to undergo the procedure. The anesthesia plan was to use monitored anesthesia care (MAC). Immediately prior to administration of medications, the patient was re-assessed for adequacy to receive sedatives. The heart rate, respiratory rate, oxygen saturations, blood pressure, adequacy of pulmonary ventilation, and response to care were monitored throughout the procedure. The physical status of the patient was re-assessed after the procedure. The Colonoscope was introduced through the anus and advanced to the cecum, identified by appendiceal orifice and ileocecal valve. The colonoscopy was performed without difficulty. The patient tolerated the procedure well. The quality of the bowel preparation was good. Findings: The digital rectal exam findings include a palpable staple line at 6-7 cm above the anal verge. Pertinent negatives include no palpable rectal lesions. A 2 mm polyp was found in the proximal ascending colon. The polyp was sessile. The polyp was removed with a jumbo cold forceps. Resection and retrieval were complete. A 5 mm polyp was found at 30 cm proximal to the anus. The polyp was carpet-like. The polyp was removed with a jumbo cold forceps. Resection and retrieval were complete. There was evidence of a prior end-to-end colo-rectal anastomosis at 7 cm proximal to the anus. This was patent and was characterized by healthy appearing mucosa. Impression: - A palpable staple line at 6-7 cm above the anal verge. found on digital rectal exam. - One 2 mm polyp in the proximal ascending colon, removed with a jumbo cold forceps. Resected and retrieved. - One 5 mm polyp at 30 cm proximal to the anus, removed with a jumbo cold forceps. Resected and retrieved. - Patent end-to-end colo-rectal anastomosis, characterized by healthy appearing mucosa. Recommendation: - Discharge patient to home. - Resume previous diet. - Continue present medications. - Await pathology results. - Repeat colonoscopy in 2 years for surveillance. Hai Ogden MD Hai Ogden MD 05/05/2020 2:01:00 PM Electronically signed by Hai Ogden MD Number of Addenda: 0 Note Initiated On: 05/05/2020 1:20 PM Estimated Blood Loss: Estimated blood loss was minimal.
[2020-05-05 14:15] VITALS: BP 144/75
== END 2020-05-05 14:29 | disposition home or self-care (01) ==
LOC: M OPP 12:11
PROVIDERS: ATTEND Surgery
DX: K63.5 Polyp of colon (principal); Z98.0 Intestinal bypass and anastomosis status; Z85.038 Personal history of other malignant neoplasm of large intestine; Z08 Encounter for follow-up examination after completed treatment for malignant neoplasm; F17.210 Nicotine dependence, cigarettes, uncomplicated

== ENCOUNTER → 2020-11-04 | Outpatient (CLI) | payer OTHER ==
[~2020-11-04] MED LIST changes: -LIDOCAINE 2% 100MG/5ML SDV (FOR ANES.) As Ordered ONE; -NS 1,000 ML IV ONE; -propofoL 200 MG/20 ML VIAL As Ordered ONE
--- NOTE | 2020-11-04 14:19 | REPMRS ---
Patient History The patient states she had a clinical breast exam in 10/21 No known family history of cancer. No Hormone Replacement Therapy Digital Woman Screen Mammo: November 04, 2020 - Exam #: [id number] Bilateral CC and MLO view(s) were taken. Technologist: Eleonora Alvarado, Technologist Prior study comparison: November 03, 2019, bilateral digital woman screen mammo performed at [facility]. October 30, 2018, bilateral digital woman screen mammo performed at [facility]. September 02, 2017, digital woman screen mammo performed at [facility]. July 23, 2013, digital woman screen mammo performed at [facility]. FINDINGS: The breast tissue is almost entirely fat. The Volpara volumetric breast density category is: A. There has been no change in the appearance of the mammogram from the prior studies. There is no interval development of dominant mass, architectural distortion, or grouped microcalcification typical of malignancy. 3-D tomosynthesis shows no additional findings. Assessment: BI-RADS/ACR category 1 mammogram. Negative Mammogram. Recommendation Routine screening mammogram of both breasts in 1 year (for women over age 40). This patient's [facility] Lifetime Breast Cancer RIsk is estimated at 5.8 %. This mammogram was interpreted with the aid of an FDA-approved computer-aided dectection system. Electronically Signed By: Jamal Ho MD 11/04/20 [id number]
== END ==
LOC: M WHC 13:42
PROVIDERS: ATTEND Family Medicine
DX: Z12.31 Encounter for screening mammogram for malignant neoplasm of breast (principal)

== ENCOUNTER → 2021-06-21 | Outpatient (CLI) | payer OTHER ==
--- NOTE | 2021-06-21 10:19 | REP ---
INDICATION: NICTOINE DEPEND. COMPARISON: Comparison study is from July 03, 2019.. TECHNIQUE: Dose reduction was performed utilizing CARE dose with automated adjustment of the kV and MAS according to patient size; iterative reconstruction, automated exposure control, as well as adaptive dose shielding. Helical scanning is acquired and 3 mm axial images are re-formatted at lung windows. FINDINGS: Digital preliminary housekeeping supervisor radiograph is unremarkable. The lung bravo are free of infiltrate, mass, or significant pulmonary nodule. No endobronchial abnormality is seen. No pleural effusion is seen. IMPRESSION: Stable lung RADS category 1 findings. Repeat screening exam indicated in 1 year. <Electronically signed by Jamal Ho > 06/21/21 [id number]
== END ==
LOC: M RAD 09:21
PROVIDERS: ATTEND Family Medicine
DX: Z12.2 Encounter for screening for malignant neoplasm of respiratory organs (principal); F17.210 Nicotine dependence, cigarettes, uncomplicated

== ENCOUNTER → 2021-11-29 | Outpatient (CLI) | payer OTHER ==
--- NOTE | 2021-11-29 10:40 | REPMRS ---
Patient History The patient states she has not had a clinical breast exam in over a year. No known family history of cancer. No Hormone Replacement Therapy Tomosynthesis is performed. Volpara breast density [facility] a[facility] No breast complaints today Patient signed the MRS sheet 1st vaccine 06/26 Pfizer-left arm 2nd vaccine 07/17-left arm Patient states she has gained at least 10lbs in the last year Priors on PACS Patient Identification Verified Digital Woman Screen Mammo: November 29, 2021 - Exam #: [id number] Bilateral CC and MLO view(s) were taken. Technologist: Lovely Flores, Technologist Prior study comparison: November 04, 2020, bilateral digital woman screen mammo performed at [facility]. November 03, 2019, bilateral digital woman screen mammo performed at [facility]. FINDINGS: There are scattered fibroglandular densities. There has been no change in the appearance of the mammogram from the prior studies. There is a mild amount of residual fibroglandular tissue which is fairly symmetric. There is no interval development of dominant mass, architectural distortion, or clustered microcalcification suggestive of malignancy. Assessment: BI-RADS/ACR category 1 mammogram. Negative Mammogram. Recommendation Routine screening mammogram in 1 year (for women over age 40). This mammogram was interpreted with the aid of an FDA-approved computer-aided dectection system. Electronically Signed By: Rachid Stubbs MD 11/29/21 [id number]
== END ==
LOC: M WHC 09:28
PROVIDERS: ATTEND Family Medicine
DX: Z12.31 Encounter for screening mammogram for malignant neoplasm of breast (principal)

== ENCOUNTER → 2022-05-04 | Outpatient (CLI) | payer MEDICARE ==
[2022-05-04 11:56] LABS: ALBUMIN 3.5 GM/DL (3.2-5.2); ALT/SGPT 18 U/L (12-78); BILIRUBIN,TOTAL 0.4 MG/DL (0.2-1.0); BLOOD UREA NITROGEN 18 MG/DL (7-18); CALCIUM LEVEL 8.9 MG/DL (8.8-10.2); CARBON DIOXIDE LEVEL 28 MEQ/L (21-32); CHLORIDE LEVEL 105 MEQ/L (98-107); CHOLESTEROL LEVEL 200 MG/DL (<200); CHOLESTEROL RISK RATIO 2.298 (<5); CREATININE FOR GFR 0.79 MG/DL (0.55-1.30); GLOMERULAR FILTRATION RATE > 60.0 (>45); GLUCOSE, FASTING 83 MG/DL (70-100); HDL CHOLESTEROL 87 MG/DL (>40); LDL CHOLESTEROL 101 MG/DL (<100); NON-HDL-C 113 MG/DL; POTASSIUM SERUM 4.6 MEQ/L (3.5-5.1); SODIUM LEVEL 139 MEQ/L (136-145); TOTAL PROTEIN 7.1 GM/DL (6.4-8.2); TRIGLYCERIDES LEVEL 59 MG/DL (<150)
== END ==
LOC: M PLALAB 08:01
PROVIDERS: ATTEND Family Medicine
DX: Z13.220 Encounter for screening for lipoid disorders (principal); Z13.1 Encounter for screening for diabetes mellitus; Z79.899 Other long term (current) drug therapy

== ENCOUNTER → 2022-07-03 | Outpatient (CLI) | payer MEDICARE | LOC: M RAD 07:55 | PROVIDERS: ATTEND Physician Assistant | DX: F17.210 Nicotine dependence, cigarettes, uncomplicated (principal) ==

== ENCOUNTER → 2022-07-22 | Outpatient (CLI) | payer MEDICARE | LOC: M LABSMTC 09:16 | PROVIDERS: ATTEND Anesthesiology | DX: Z01.818 Encounter for other preprocedural examination (principal); Z11.52 Encounter for screening for COVID-19 ==

== ENCOUNTER 2022-07-26 06:48 | Day surgery (SDC) | payer MEDICARE ==
[~2022-07-26] VITALS: Ht 157.5 cm; Wt 82.1 kg
[2022-07-26] MEDS ORDERED: propofoL 500 MG/50 ML VIAL As Ordered ONE (07:15)
[2022-07-26] MEDS ORDERED: LIDOCAINE 2% 100MG/5ML SDV (FOR ANES.) As Ordered ONE (07:19)
[2022-07-26] MEDS ORDERED: PHENYLephrine 500MCG 5ML (100MCG/ML) SYRINGE As Ordered ONE (08:00)
[2022-07-26 08:29] VITALS: BP 123/56
[2022-07-27] MEDS ORDERED: NS 1,000 ML IV ONE (06:00)
== END 2022-07-26 08:40 | disposition home or self-care (01) ==
LOC: M OPP 06:48
PROVIDERS: ATTEND Surgery
DX: Z12.11 Encounter for screening for malignant neoplasm of colon (principal); Z85.038 Personal history of other malignant neoplasm of large intestine; Z86.010 Personal history of colon polyps; K57.30 Diverticulosis of large intestine without perforation or abscess without bleeding; K21.00 Gastro-esophageal reflux disease with esophagitis, without bleeding; F17.200 Nicotine dependence, unspecified, uncomplicated; Z79.1 Long term (current) use of non-steroidal anti-inflammatories (NSAID); Z79.899 Other long term (current) drug therapy
CPT/HCPCS: G0105; J2370

== ENCOUNTER → 2022-11-30 | Outpatient (CLI) | payer MEDICARE | LOC: M WHC 10:21 | PROVIDERS: ATTEND Physician Assistant | DX: Z12.31 Encounter for screening mammogram for malignant neoplasm of breast (principal) ==

== ENCOUNTER → 2023-03-28 | Outpatient (CLI) | payer MEDICARE ==
[2023-03-28 10:35] LABS: BASO % 0.6 % (0.0-1.0); EOS % 0.6 % (0.0-3.0); HEMATOCRIT 47.2 % (36.0-47.0); HEMOGLOBIN 15.2 g/dl (12.0-15.5); LYMPH # 1.5 10^3/uL (1.5-5.0); LYMPH % 20.6 % (24.0-44.0); MEAN CORPUSCULAR HEMOGLOBIN 30.2 pg (27.0-33.0); MEAN CORPUSCULAR HGB CONC 32.2 g/dl (32.0-36.5); MEAN CORPUSCULAR VOLUME 93.7 fl (80.0-96.0); MONO # 0.6 10^3/uL (0.0-0.8); MONO % 7.9 % (2.0-8.0); PLATELET COUNT, AUTOMATED 237 10^3/uL (150-450); RED BLOOD COUNT 5.04 10^6/uL (4.00-5.40); WHITE BLOOD COUNT 7.2 10^3/uL (4.0-10.0)
[2023-03-28 10:57] LABS: ALBUMIN 3.7 G/DL (3.2-5.2); ALKALINE PHOSPHATASE 94 U/L (46-116); ALT/SGPT 18 U/L (7.0-40); AST/SGOT 33 U/L (<34); BILIRUBIN,TOTAL 0.5 MG/DL (0.3-1.2); BLOOD UREA NITROGEN 15 MG/DL (9-23); CALCIUM LEVEL 9.4 MG/DL (8.3-10.6); CARBON DIOXIDE LEVEL 29 MMOL/L (20-31); CHLORIDE LEVEL 104 MMOL/L (98-107); CHOLESTEROL LEVEL 204 MG/DL (<200); CHOLESTEROL RISK RATIO 2.31 (<5); CREATININE FOR GFR 0.66 MG/DL (0.55-1.30); GLOMERULAR FILTRATION RATE > 60.0 (>45); GLUCOSE, FASTING 77 MG/DL (74-106); HDL CHOLESTEROL 88.1 MG/DL (>40); LDL CHOLESTEROL 102.7 MG/DL (<100); NON-HDL-C 115.9 MG/DL; POTASSIUM SERUM 4.7 MMOL/L (3.5-5.1); SODIUM LEVEL 141 MMOL/L (136-145); TOTAL PROTEIN 7.2 G/DL (5.7-8.2); TRIGLYCERIDES LEVEL 66 MG/DL (<150)
[2023-03-28 10:59] LABS: THYROID STIMULATING HORMONE 1.815 uIU/ML (0.55-4.78)
== END ==
LOC: M PLALAB 07:37
PROVIDERS: ATTEND Physician Assistant
DX: Z00.00 Encounter for general adult medical examination without abnormal findings (principal); Z13.1 Encounter for screening for diabetes mellitus; Z13.29 Encounter for screening for other suspected endocrine disorder; Z79.899 Other long term (current) drug therapy

== ENCOUNTER → 2023-05-21 | Outpatient (CLI) | payer MEDICARE ==
[~2023-05-21] MED LIST changes: +MULT-90 PO
[2023-05-21 15:45] LABS: BASO % 0.6 % (0.0-1.0); EOS # 0.1 10^3/uL (0.0-0.5); EOS % 1.1 % (0.0-3.0); HEMATOCRIT 44.4 % (36.0-47.0); HEMOGLOBIN 14.4 g/dl (12.0-15.5); LYMPH # 2.1 10^3/uL (1.5-5.0); LYMPH % 29.6 % (24.0-44.0); MEAN CORPUSCULAR HEMOGLOBIN 30.3 pg (27.0-33.0); MEAN CORPUSCULAR HGB CONC 32.4 g/dl (32.0-36.5); MEAN CORPUSCULAR VOLUME 93.5 fl (80.0-96.0); MONO # 0.7 10^3/uL (0.0-0.8); MONO % 9.5 % (2.0-8.0); NEUTROPHILS # 4.2 10^3/uL (1.5-8.5); NEUTROPHILS % 58.9 % (36.0-66.0); PLATELET COUNT, AUTOMATED 239 10^3/uL (150-450); RED BLOOD COUNT 4.75 10^6/uL (4.00-5.40); WHITE BLOOD COUNT 7.2 10^3/uL (4.0-10.0)
[2023-05-21 23:38] LABS: BLOOD UREA NITROGEN 21 MG/DL (9-23); CALCIUM LEVEL 8.7 MG/DL (8.3-10.6); CARBON DIOXIDE LEVEL 29 MMOL/L (20-31); CHLORIDE LEVEL 105 MMOL/L (98-107); CREATININE FOR GFR 0.83 MG/DL (0.55-1.30); GLOMERULAR FILTRATION RATE > 60.0 (>45); GLUCOSE, FASTING 80 MG/DL (74-106); POTASSIUM SERUM 4.8 MMOL/L (3.5-5.1); SODIUM LEVEL 139 MMOL/L (136-145)
== END ==
LOC: M PLALAB 14:47
PROVIDERS: ATTEND Family Medicine
DX: Z01.810 Encounter for preprocedural cardiovascular examination (principal); J30.2 Other seasonal allergic rhinitis

== ENCOUNTER 2023-05-30 08:27 | Day surgery (SDC) | payer MEDICARE ==
[~2023-05-30] VITALS: Ht 157.5 cm; Wt 83.3 kg
[~2023-05-30 08:27] MED LIST changes: +KETOROLAC 60MG 2ML VIAL As Ordered ONE; +LIDOCAINE 2% 100MG/5ML SDV (FOR ANES.) As Ordered ONE; +ONDANSETRON 4MG 2ML VIAL As Ordered ONE; +ceFAZolin SOD 2 GM in IV 1 EA IV ONE; +propofoL 200 MG/20 ML VIAL As Ordered ONE
[2023-05-30] MEDS ORDERED: LR 1,000 ML IV SCH (08:50)
[2023-05-30] MEDS ORDERED: fentaNYL 100 MCG/2 ML INJECTION As Ordered ONE (09:34)
[2023-05-30] MEDS ORDERED: MIDAZOLAM INJ 2MG/2ML VIAL As Ordered ONE (09:34)
[2023-05-30] MEDS: LIDOCAINE 1% MDV 20ML VIAL As Ordered ONE ×2 (11:05→11:45)
[2023-05-30] MEDS ORDERED: ACETAMINOPHEN 1000MG 100ML IV BAG As Ordered ONE (11:08)
[2023-05-30] MEDS ORDERED: propofoL 200 MG/20 ML VIAL As Ordered ONE (11:26)
[2023-05-30 12:50] VITALS: BP 173/74; TEMP 97.6; O2SAT 95
== END 2023-05-30 15:20 | disposition home or self-care (01) ==
LOC: M SDC 08:27
PROVIDERS: ATTEND Podiatrist Foot & Ankle Surgery
DX: M21.611 Bunion of right foot (principal); M20.41 Other hammer toe(s) (acquired), right foot; K21.9 Gastro-esophageal reflux disease without esophagitis; Z90.49 Acquired absence of other specified parts of digestive tract; Z85.038 Personal history of other malignant neoplasm of large intestine; Z79.899 Other long term (current) drug therapy; F17.219 Nicotine dependence, cigarettes, with unspecified nicotine-induced disorders
CPT/HCPCS: 28285; 28298; 93005; 97116; 97530; C1713; J0131; J0690; J1100; J1885; J2250; J2405; J3010

== ENCOUNTER → 2023-07-11 | Outpatient (CLI) | payer MEDICARE ==
[~2023-07-11] MED LIST changes: -KETOROLAC 60MG 2ML VIAL As Ordered ONE; -LIDOCAINE 2% 100MG/5ML SDV (FOR ANES.) As Ordered ONE; -ONDANSETRON 4MG 2ML VIAL As Ordered ONE; -ceFAZolin SOD 2 GM in IV 1 EA IV ONE; -propofoL 200 MG/20 ML VIAL As Ordered ONE
== END ==
LOC: M RAD 06:51
PROVIDERS: ATTEND Family Medicine
DX: Z12.2 Encounter for screening for malignant neoplasm of respiratory organs (principal); F17.210 Nicotine dependence, cigarettes, uncomplicated

== ENCOUNTER → 2023-09-20 | Outpatient (REF) | payer MEDICARE ==
[~2023-09-20] MED LIST changes: +ACET-841 PO
[2023-09-20 17:51] LABS: APPEARANCE, URINE CLEAR (CLEAR); BACTERIA, URINE AUTO NEGATIVE (NEGATIVE); BILIRUBIN, URINE AUTO NEGATIVE (NEGATIVE); BLOOD, URINE BLOOD NEGATIVE (NEGATIVE); COLOR, URINE STRAW (YELLOW); GLUCOSE, URINE (UA) AUTO NEGATIVE (NEGATIVE); KETONE, URINE AUTO NEGATIVE (NEGATIVE); LEUKOCYTE ESTERASE, URINE AUTO NEGATIVE (NEGATIVE); NITRITE, URINE AUTO NEGATIVE (NEGATIVE); PROTEIN, URINE AUTO NEGATIVE (NEGATIVE); RBC, URINE AUTO 0 /HPF (0-3); SPECIFIC GRAVITY URINE AUTO 1.003 (1.002-1.035); SQUAMOUS EPITHELIAL CELL UR AU 0 /HPF (0-6); UROBILINOGEN, URINE AUTO 0.2 mg/dL (0.0-2.0); WBC, URINE AUTO 0 /HPF (0-3)
[2023-09-24 10:54] LABS: BLOOD UREA NITROGEN 16 MG/DL (8-27); CREATININE FOR GFR 0.74 MG/DL (0.57-1.00); GLOMERULAR FILTRATION RATE > 60.0 (>59)
[2023-09-24 10:55] LABS: CALCIUM LEVEL 9.5 MG/DL (8.7-10.3); CARBON DIOXIDE LEVEL 20 mmol/L (20-29); CHLORIDE LEVEL 106 mmol/L (96-106); GLUCOSE, FASTING 78 MG/DL (70-99); POTASSIUM SERUM 4.8 mmol/L (3.5-5.2); SODIUM LEVEL 143 mmol/L (134-144)
== END ==
LOC: M LABDRWAD 17:27
PROVIDERS: ATTEND Family Medicine
DX: R03.0 Elevated blood-pressure reading, without diagnosis of hypertension (principal)

== ENCOUNTER → 2023-12-06 | Outpatient (CLI) | payer MEDICARE, OTHER | LOC: M WHC 08:54 | PROVIDERS: ATTEND Family Medicine | DX: Z12.31 Encounter for screening mammogram for malignant neoplasm of breast (principal) ==

== ENCOUNTER → 2024-01-03 | Outpatient (REF) | payer MEDICARE ==
[2024-01-03 13:32] LABS: BASO # 0.1 10^3/uL (0.0-0.2); BASO % 0.8 % (0.0-1.0); EOS # 0.1 10^3/uL (0.0-0.5); EOS % 0.6 % (0.0-3.0); HEMATOCRIT 48.9 % (36.0-47.0); LYMPH # 2.4 10^3/uL (1.5-5.0); LYMPH % 23.9 % (24.0-44.0); MEAN CORPUSCULAR HEMOGLOBIN 30.8 pg (27.0-33.0); MEAN CORPUSCULAR HGB CONC 32.7 g/dl (32.0-36.5); MONO # 0.8 10^3/uL (0.0-0.8); NEUTROPHILS # 6.8 10^3/uL (1.5-8.5); NEUTROPHILS % 66.4 % (36.0-66.0); PLATELET COUNT, AUTOMATED 251 10^3/uL (150-450); WHITE BLOOD COUNT 10.2 10^3/uL (4.0-10.0)
[2024-01-03 14:04] LABS: CREATININE, URINE 58.9 MG/DL
[2024-01-03 14:05] LABS: MALB URINE SIEMENS < 3.0 MG/L
[2024-01-03 14:06] LABS: ALBUMIN 4.1 G/DL (3.2-5.2); ALKALINE PHOSPHATASE 102 U/L (46-116); ALT/SGPT 19 U/L (7.0-40); AST/SGOT 24 U/L (<34); BILIRUBIN,TOTAL 0.5 MG/DL (0.3-1.2); BLOOD UREA NITROGEN 18 MG/DL (9-23); CALCIUM LEVEL 9.7 MG/DL (8.3-10.6); CARBON DIOXIDE LEVEL 29 MMOL/L (20-31); CHLORIDE LEVEL 104 MMOL/L (98-107); CREATININE FOR GFR 0.76 MG/DL (0.55-1.30); FREE T4 1.12 NG/DL (0.89-1.76); GLOMERULAR FILTRATION RATE > 60.0 (>45); GLUCOSE, FASTING 85 MG/DL (74-106); POTASSIUM SERUM 4.5 MMOL/L (3.5-5.1); SODIUM LEVEL 139 MMOL/L (136-145); TOTAL PROTEIN 7.4 G/DL (5.7-8.2)
[2024-01-03 14:07] LABS: FOLATE > 24.0 NG/ML (>5.4); VITAMIN B12 LEVEL 564 PG/ML (211-911)
== END ==
LOC: M SFHCADAM 10:01
PROVIDERS: ATTEND Physician Assistant
DX: I47.19 Other supraventricular tachycardia (principal); F10.10 Alcohol abuse, uncomplicated; I10 Essential (primary) hypertension

== ENCOUNTER → 2024-01-06 | Outpatient (CLI) | payer MEDICARE ==
[~2024-01-06] MED LIST changes: +PROHANCE 279.3MG/ML 15ML VIAL ONE
== END ==
LOC: M PLAIMG 13:39
PROVIDERS: ATTEND Physician Assistant
DX: I47.19 Other supraventricular tachycardia (principal); H81.90 Unspecified disorder of vestibular function, unspecified ear; I10 Essential (primary) hypertension
CPT/HCPCS: 70553; A9576

== ENCOUNTER → 2024-01-13 | Outpatient (CLI) | payer MEDICARE ==
[~2024-01-13] MED LIST changes: -PROHANCE 279.3MG/ML 15ML VIAL ONE
== END ==
LOC: M PLAIMG 14:32
PROVIDERS: ATTEND Physician Assistant
DX: I10 Essential (primary) hypertension (principal); F10.10 Alcohol abuse, uncomplicated; I47.19 Other supraventricular tachycardia

== ENCOUNTER → 2024-06-03 | Outpatient (REF) | payer MEDICARE ==
[2024-06-03 14:41] LABS: ALBUMIN 3.8 G/DL (3.2-5.2); ALKALINE PHOSPHATASE 98 U/L (46-116); ALT/SGPT 17 U/L (7.0-40); AST/SGOT 20 U/L (<34); BILIRUBIN,TOTAL 0.5 MG/DL (0.3-1.2); BLOOD UREA NITROGEN 18 MG/DL (9-23); CALCIUM LEVEL 9.5 MG/DL (8.3-10.6); CARBON DIOXIDE LEVEL 30 MMOL/L (20-31); CHLORIDE LEVEL 105 MMOL/L (98-107); CHOLESTEROL LEVEL 211 MG/DL (<200); CHOLESTEROL RISK RATIO 2.65 (<5); CREATININE FOR GFR 0.73 MG/DL (0.55-1.30); GLOMERULAR FILTRATION RATE > 60.0 (>45); GLUCOSE, FASTING 74 MG/DL (74-106); HDL CHOLESTEROL 79.4 MG/DL (>40); LDL CHOLESTEROL 117.6 MG/DL (<100); NON-HDL-C 131.6 MG/DL; POTASSIUM SERUM 4.7 MMOL/L (3.5-5.1); SODIUM LEVEL 141 MMOL/L (136-145); TRIGLYCERIDES LEVEL 70 MG/DL (<150)
== END ==
LOC: M SFHCADAM 08:10
PROVIDERS: ATTEND Physician Assistant
DX: F17.210 Nicotine dependence, cigarettes, uncomplicated (principal); C20 Malignant neoplasm of rectum; I10 Essential (primary) hypertension; Z13.220 Encounter for screening for lipoid disorders

== ENCOUNTER 2024-07-02 06:53 | Day surgery (SDC) | payer MEDICARE ==
[~2024-07-02] VITALS: Ht 157.5 cm; Wt 82.6 kg
[~2024-07-02 06:53] MED LIST changes: +AMLO1TAB24 PO; +ASPI81TA26 PO; +LOSA50TA28 PO; +METO1TAB7 PO; +THERTAB52 PO
[2024-07-02] MEDS: NS 1,000 ML IV ONE (07:13)
[2024-07-02] MEDS ORDERED: propofoL 200 MG/20 ML VIAL As Ordered ONE (07:16)
[2024-07-02 08:34] VITALS: TEMP 97.5
[2024-07-02 08:50] VITALS: BP 145/67; O2SAT 97
== END 2024-07-02 09:04 | disposition home or self-care (01) ==
LOC: M OPP 06:53
PROVIDERS: ATTEND Surgery
DX: Z86.010 Personal history of colon polyps (principal); Z85.038 Personal history of other malignant neoplasm of large intestine; Z08 Encounter for follow-up examination after completed treatment for malignant neoplasm; D12.7 Benign neoplasm of rectosigmoid junction; Z98.0 Intestinal bypass and anastomosis status; F17.200 Nicotine dependence, unspecified, uncomplicated; Z79.1 Long term (current) use of non-steroidal anti-inflammatories (NSAID); Z79.82 Long term (current) use of aspirin; Z79.899 Other long term (current) drug therapy

== ENCOUNTER → 2024-09-17 | Outpatient (CLI) | payer MEDICARE ==
[~2024-09-17] MED LIST changes: -VITA500C19 PO; +VITA500C22 PO
== END ==
LOC: M RAD 07:17
PROVIDERS: ATTEND Physician Assistant
DX: Z12.2 Encounter for screening for malignant neoplasm of respiratory organs (principal); F17.210 Nicotine dependence, cigarettes, uncomplicated

== ENCOUNTER → 2024-12-08 | Outpatient (CLI) | payer MEDICARE | LOC: M WHC 06:57 | PROVIDERS: ATTEND Physician Assistant | DX: Z12.31 Encounter for screening mammogram for malignant neoplasm of breast (principal) ==

== ENCOUNTER → 2024-12-16 | Outpatient (CLI) | payer MEDICARE | LOC: M SLEEP 20:00 | PROVIDERS: ATTEND Internal Medicine Pulmonary Disease | DX: G47.33 Obstructive sleep apnea (adult) (pediatric) (principal) ==

== ENCOUNTER → 2025-02-02 | Outpatient (CLI) | payer MEDICARE | LOC: M SLEEP 20:00 | PROVIDERS: ATTEND Internal Medicine Pulmonary Disease | DX: G47.33 Obstructive sleep apnea (adult) (pediatric) (principal) ==

== ENCOUNTER → 2025-07-14 | Outpatient (REF) | payer MEDICARE ==
[2025-07-14 14:11] LABS: ALT/SGPT 21.0 U/L (7.0-40); AST/SGOT 31.0 U/L (<34); CALCIUM LEVEL 9.4 MG/DL (8.3-10.6); CARBON DIOXIDE LEVEL 30.0 MMOL/L (20-31); CHLORIDE LEVEL 104.0 MMOL/L (98-107); CHOLESTEROL LEVEL 170.0 MG/DL (<200); CHOLESTEROL RISK RATIO 2.14 (<5); CREATININE FOR GFR 0.8 MG/DL (0.55-1.30); GLOMERULAR FILTRATION RATE 80.2 (>45); LDL CHOLESTEROL 75.8 MG/DL (<100); NON-HDL-C 90.8 MG/DL; POTASSIUM SERUM 4.3 MMOL/L (3.5-5.1); SODIUM LEVEL 142.0 MMOL/L (136-145); TRIGLYCERIDES LEVEL 75.0 MG/DL (<150)
[2025-07-14 14:24] LABS: ESTIMATED AVERAGE GLUCOSE 103.0 MG/DL (60-110)
== END ==
LOC: M SFHCADAM 08:09
PROVIDERS: ATTEND Physician Assistant
DX: Z00.00 Encounter for general adult medical examination without abnormal findings (principal); I10 Essential (primary) hypertension; Z68.35 Body mass index [BMI] 35.0-35.9, adult; F17.210 Nicotine dependence, cigarettes, uncomplicated; K21.9 Gastro-esophageal reflux disease without esophagitis; E78.00 Pure hypercholesterolemia, unspecified; E66.01 Morbid (severe) obesity due to excess calories; E66.812 Obesity, class 2; Z23 Encounter for immunization; Z79.899 Other long term (current) drug therapy

== ENCOUNTER → 2025-10-26 | Outpatient (CLI) | payer MEDICARE | LOC: M RAD 08:41 | PROVIDERS: ATTEND Physician Assistant | DX: Z87.891 Personal history of nicotine dependence (principal) ==